=== PATIENT | female | born 1940 | race Caucasian/White ===

== ENCOUNTER 2017-03-07 19:37 | Emergency (ER) | payer MEDICARE ==
[~2017-03-07 19:37] MED LIST: CALCCHW25 CHEW; COQ130CA PO; DIPH2.5T14 PO; FLAXPOW PO; GENTGEL EACH EYE; MAGN250T11 PO; MULTTAB67 PO; VITA100018 PO; VITA400C70; ZOLP5TAB3 PO
[2017-03-07 19:57] VITALS: BP 141/87; PULSE 102; RESP 16; TEMP 100.5; O2SAT 100
== END 2017-03-07 21:15 | disposition left against medical advice (07) ==
LOC: NED 19:37
DX: R10.9 Unspecified abdominal pain (principal); R11.0 Nausea; R50.9 Fever, unspecified; Z53.21 Procedure and treatment not carried out due to patient leaving prior to being seen by health care provider
CPT/HCPCS: 99281

== ENCOUNTER 2017-03-09 12:38 | Inpatient (IN) | payer MEDICARE ==
[~2017-03-09] VITALS: Ht 157.5 cm; Wt 63.4 kg
[~2017-03-09 12:38] MED LIST changes: +LACTATED RINGER'S 1000 ML INJ 2,000 ML IV ONE; +ONDANSETRON HCL 4 MG/2 ML VIAL IV PUSH ONE; +PHENYLEPH/NS 1000 MCG/10 ML SYR IV ONE; +PROPOFOL 200 MG/20 ML AMP IV ONE; +ePHEDrine/NS 25 MG/5 ML SYR IV ONE
[2017-03-09 12:42] VITALS: BP 143/67; PULSE 109; RESP 20; TEMP 98.7; O2SAT 97
--- NOTE | 2017-03-09 12:59 | PD ---
HPI Chief Complaint: Head Wound Follow-up. Time Seen by Provider: 12:55 Travel History International Travel<30 days: No Contact w/Intl Traveler<30days: No History of Present Illness HPI Patient here S/P Small Head Lac to Left Posterior Scalp 3 days ago. Here to see when [place] should come out. no Acute Complaints. PFSH Past Medical History Asthma: No Blood Disorders: No Anxiety: No Depression: No Heart Rhythm Problems: No Cancer: No Cardiovascular Problems: No (MOTHER HAD MD ) High Cholesterol: No Chemotherapy: No Chest Pain: Yes (TURNED OUT TO BE GALLBLADDER) Congestive Heart Failure: No COPD: No Diabetes: No Diminished Hearing: No Endocrine: No Gastrointestinal Disorders: Yes (FISTULA) GERD: Yes Genitourinary: No Hypertension: Yes Immune Disorder: No Musculoskeletal: No Neurologic: No Psychiatric: No Reproductive: No Respiratory: No Immunizations Current: Yes Radiation Therapy: No Sleep Apnea: No Thyroid Disease: No PNEUMOCCOCAL Vaccine (Year): 2008 Menopausal: Yes Past Surgical History Abdominal Surgery: Yes (COLON RESECTION 03/27/10) Cholecystectomy: Yes Gynecologic Surgery: Yes (hysterectomy) Hysterectomy: Yes (at age 55) Social History Alcohol Use: Yes (WINE X1 DAILY) Tobacco Use: No Substance Use: No Allergies-Medications (Allergen,Severity, Reaction): Coded Allergies: No Known Allergies (Verified , 03/09/17) Reported Meds & Prescriptions Reported Meds & Active Scripts Active Zolpidem (Zolpidem Tartrate) 5 Mg Tab 5 Mg PO HS PRN Diphenoxylate-Atropine 2.5-0.025 Mg Tab 1 Tab PO Q6H PRN Reported Genteal Gel Drops (Carboxymethylcell/Hypromellose) 25 Ml Drp.lq.gel Applic EACH EYE PRN Flax Seeds (Flaxseed (Linseed)) 1 Pow Pow 1 PO PRN Vitamin D3 (Cholecalciferol) 1,000 Unit Tab 1,000 Units PO DAILY Coq10 (Coenzyme Q10 (Ubidecarenone)) 30 Mg Cap 1 Cap PO DAILY Multiple Vitamin 1 Tab 1 Tab PO DAILY Magnesium Oxide 250 Mg Tab 250 Mg PO DAILY Vitamin E-400 (Vitamin E) 400 Unit Cap Calcium + D & K (Calcium-Vitamins D & K) 500-1,000-40 Mg-Unit-Mcg Chew 1 Tab CHEW Review of Systems Except as stated in HPI: all other systems reviewed are Neg General / Constitutional: No: Fever Eyes: No: Visual changes HENT: No: Headaches Cardiovascular: No: Chest Pain or Discomfort Respiratory: No: Shortness of Breath Gastrointestinal: No: Abdominal Pain Genitourinary: No: Dysuria Musculoskeletal: No: Pain Skin: No Rash Neurologic: No: Weakness Psychiatric: No: Depression Endocrine: No: Polydipsia Hematologic/Lymphatic: No: Easy Bruising Physical Exam Narrative GENERAL: NAD SKIN: Warm and dry. Well healing Scalp Laceration with [address] HEAD: Atraumatic. Normocephalic. EYES: Pupils equal and round. No scleral icterus. No injection or drainage. ENT: No nasal bleeding or discharge. Mucous membranes pink and moist. NECK: Trachea midline.supple CARDIOVASCULAR: Regular rate and rhythm. RESPIRATORY: No accessory muscle use. MUSCULOSKELETAL: Extremities without clubbing, cyanosis, or edema. No obvious deformities. NEUROLOGICAL: Awake and alert. No obvious cranial nerve deficits. Motor grossly within normal limits. Five out of 5 muscle strength in the arms and legs. Normal speech. PSYCHIATRIC: Appropriate mood and affect; insight and judgment normal. Data Data Last Documented VS Vital Signs Date Time Temp Pulse Resp B/P (MAP) Pulse Ox O2 Delivery O2 Flow Rate FiO2 03/09/17 12:42 98.7 109 20 143/67 (92) 97 Room Air MDM Medical Decision Making Medical Screen Exam Complete: Yes Emergency Medical Condition: No Differential Diagnosis Head Injury. Scalp Laceration. Wound Check. Narrative Course Medical Screening Exam has been performed. No Emergent Medical Problems have been identified. F/U as needed. Condition: Stable Xavier Huber Mar 09, 2017 12:59
--- NOTE | 2017-03-09 13:31 | PD ---
Physical Exam Date Seen by Provider: Mar 09, 2017 Time Seen by Provider: 13:29 Narrative 76 y/o female here with 3 days of 7/10 lower abdominal pain. Patient has Nausea , but no vomiting or Diarrhea. Patient sent in by PCP. Vital Signs reviewed. Patient is Stable and awaiting Bed Placement. Data Data Last Documented VS Vital Signs Date Time Temp Pulse Resp B/P (MAP) Pulse Ox O2 Delivery O2 Flow Rate FiO2 03/09/17 12:42 98.7 109 20 143/67 (92) 97 Room Air Orders Orders Complete Blood Count With Diff (03/09/17 13:01) Comprehensive Metabolic Panel (03/09/17 13:01) Lipase (03/09/17 13:01) Lactic Acid (03/09/17 13:01) Prothrombin Time / Inr (Pt) (03/09/17 13:01) Act Partial Throm Time (Ptt) (03/09/17 13:01) Urinalysis - C+S If Indicated (03/09/17 13:01) Electrocardiogram (03/09/17 13:01) Chest, Single Ap (03/09/17 13:01) Ckmb (Isoenzyme) Profile (03/09/17 13:01) Magnesium (Mg) (03/09/17 13:01) Troponin I (03/09/17 13:01) MDM Medical Record Reviewed: Yes Supervised Visit with NICOLE: Yes Condition: Stable Xavier Huber Mar 09, 2017 13:31
[2017-03-09 13:45] LABS: AUTOMATED NEUTROPHIL # 18.7 TH/MM3 (1.8-7.7); BASOPHIL % 0.1 % (0.0-2.0); HEMATOCRIT 42.9 % (35.0-46.0); HEMO FLAGS DIFF FINAL; LYMPHOCYTE # 1.2 TH/MM3 (1.0-4.8); MEAN CELL VOLUME 93.7 FL (80.0-100.0); MEAN CORPUSCULAR HEMOGLOBIN 31.7 PG (27.0-34.0); MEAN CORPUSCULAR HGB CONC 33.8 % (32.0-36.0); MONO % 3.1 % (0.0-8.0); NEUT % 90.8 % (16.0-70.0); PLATELET COUNT 233 TH/MM3 (150-450); RED BLOOD COUNT 4.58 MIL/MM3 (4.00-5.30); RED CELL DISTRIBUTION WIDTH 14.1 % (11.6-17.2); WHITE BLOOD COUNT 20.5 TH/MM3 (4.0-11.0)
[2017-03-09 14:00] LABS: ALT (GPT) 40 U/L (10-53); ANION GAP 11 MEQ/L (5-15); AST (GOT) 37 U/L (15-37); BICARBONATE 26.5 MEQ/L (21.0-32.0); BLOOD UREA NITROGEN 14 MG/DL (7-18); CHLORIDE 98 MEQ/L (98-107); GLOMERULAR FILTRATION RATE 58 ML/MIN (>89); MAGNESIUM 2.6 MG/DL (1.5-2.5); POTASSIUM 4.2 MEQ/L (3.5-5.1); SODIUM (NA) 135 MEQ/L (136-145)
[2017-03-09 14:03] LABS: ALKALINE PHOSPHATASE 126 U/L (45-117); APTT (PATIENT) 31.4 SEC (24.3-30.1); INTERNATIONAL NORMALIZED RATIO 0.9 RATIO; PROTHROMBIN TIME - PATIENT 10.3 SEC (9.8-11.6); TOTAL BILIRUBIN ADULT 1.1 MG/DL (0.2-1.0)
[2017-03-09 14:06] LABS: CREATINE KINASE 79 U/L (26-192)
--- NOTE | 2017-03-09 14:32 | RADRPT ---
EXAM DATE/TIME: 03/09/2017 14:16 [facility] COMPARISON: No previous studies available for comparison. INDICATIONS : Cough. MEDICAL HISTORY : None. SURGICAL HISTORY : None. ENCOUNTER: Initial ACUITY: 1 day PAIN SCORE: 0/10 LOCATION: Bilateral chest FINDINGS: PA and lateral views of the chest demonstrates hyperinflation which can be seen with CO PD. No infiltrates are seen. Heart is normal in size. The mediastinal contours are unremarkable. O sseous structures are intact. CONCLUSION: Hyperinflation which can be seen with COPD. No acute cardiopulmonary disease an d no evidence for an infiltrate. Oscar Basurto MD on March 09, 2017 at 14:30 Board Certified Radiologist. This report was verified electronically.
[2017-03-09 14:58] LABS: BLOOD, URINE MOD (NEG); COMMENT (UR) CULT NOT INDICATED; CULTURE IF INDICATED CULT NOT INDICATED; GLUCOSE,URINE NEG (NEG); KETONE, URINE 40 mg/dL (NEG); MUCUS URINE FEW /lpf (OCC); NITRITE,URINE NEG (NEG); SQUAMOUS EPITHELIAL CELL URINE 2 /hpf (0-5); URINE COLOR YELLOW (YELLW/STRAW)
[2017-03-09] MEDS ORDERED: SODIUM CHLOR 0.9% 1000 ML INJ 1,000 ML IV SCH (16:47)
--- NOTE | 2017-03-09 16:57 | PD ---
HPI Chief Complaint: Abdominal Pain Time Seen by Provider: 16:47 Travel History International Travel<30 days: No Contact w/Intl Traveler<30days: No Traveled to known affect area: No History of Present Illness HPI Patient comes emergency Department complaining of lower abdominal pain ongoing for 3 days. Patient describes pain as a sharp stabbing. Pain radiates from the left to the right lower quadrant. Patient's pain is constant. Patient reports a fever yesterday and took Tylenol for it, but has not had a fever since. Patient denies doing anything else for this. Patient reports associated nausea and nonbloody diarrhea. Patient denies any actual vomiting. Patient denies any chest pain, shortness of breath, back pain, loss change of bladder, headaches, numbness or tingling anywhere. Patient reports she's had 18 inches of her colon removed, hysterectomy, and cholecystectomy, but denies any other abdominal surgeries. Pain is worse with certain movement and palpation. Denies anything making it better. Denies any recent antibiotic use. PFSH Past Medical History Asthma: No Blood Disorders: No Anxiety: No Depression: No Heart Rhythm Problems: No Cancer: No Cardiovascular Problems: No (MOTHER HAD MA ) High Cholesterol: No Chemotherapy: No Chest Pain: Yes (TURNED OUT TO BE GALLBLADDER) Congestive Heart Failure: No COPD: No Diabetes: No Diminished Hearing: No Endocrine: No Gastrointestinal Disorders: Yes (FISTULA) GERD: Yes Genitourinary: No Hypertension: Yes Immune Disorder: No Musculoskeletal: No Neurologic: No Psychiatric: No Reproductive: No Respiratory: No Immunizations Current: Yes Radiation Therapy: No Sleep Apnea: No Thyroid Disease: No PNEUMOCCOCAL Vaccine (Year): 2008 Menopausal: Yes Past Surgical History Abdominal Surgery: Yes (COLON RESECTION 03/27/10) Cholecystectomy: Yes Gynecologic Surgery: Yes (hysterectomy) Hysterectomy: Yes Social History Alcohol Use: Yes (WINE X1 DAILY) Tobacco Use: No Substance Use: No Allergies-Medications (Allergen,Severity, Reaction): Coded Allergies: No Known Allergies (Verified , 03/09/17) Reported Meds & Prescriptions Reported Meds & Active Scripts Active Zolpidem (Zolpidem Tartrate) 5 Mg Tab 5 Mg PO HS PRN Reported Genteal Gel Drops (Carboxymethylcell/Hypromellose) 25 Ml Drp.lq.gel Applic EACH EYE PRN Vitamin D3 (Cholecalciferol) 1,000 Unit Tab 1,000 Units PO DAILY Coq10 (Coenzyme Q10 (Ubidecarenone)) 30 Mg Cap 1 Cap PO DAILY Multiple Vitamin 1 Tab 1 Tab PO DAILY Magnesium Oxide 250 Mg Tab 250 Mg PO DAILY Vitamin E-400 (Vitamin E) 400 Unit Cap Calcium + D & K (Calcium-Vitamins D & K) 500-1,000-40 Mg-Unit-Mcg Chew 1 Tab CHEW Review of Systems Except as stated in HPI: all other systems reviewed are Neg Physical Exam Narrative GENERAL: Well-developed, well nourished, in no acute distress, and non-ill appearing. SKIN: Focused skin assessment warm and dry. HEAD: Atraumatic. Normocephalic. EYES: Pupils equal and round. EOMI. No scleral icterus. No injection or drainage. ENT: No nasal bleeding or discharge. Mucous membranes pink and moist. NECK: Trachea midline. Supple. No nuclear rigidity. CARDIOVASCULAR: Regular rate and rhythm. No murmur appreciated. RESPIRATORY: No accessory muscle use. No respiratory distress. Clear to auscultation. Breath sounds equal bilaterally. GASTROINTESTINAL: Abdomen soft, nondistended. Hepatic and splenic margins not palpable. Normal bowel sounds 4. No pulsatile mass. Patient reports tenderness throughout her lower abdomen with voluntary guarding. MUSCULOSKELETAL: No obvious deformities. No clubbing. No cyanosis. No edema. Full range of motion. NEUROLOGICAL: Awake and alert. No obvious cranial nerve deficits. Motor grossly within normal limits. Normal speech. PSYCHIATRIC: Appropriate mood and affect; insight and judgment normal. Data Data Last Documented VS Vital Signs Date Time Temp Pulse Resp B/P (MAP) Pulse Ox O2 Delivery O2 Flow Rate FiO2 03/09/17 18:00 95 26 154/67 (96) 97 Room Air 03/09/17 12:42 98.7 Orders Orders Complete Blood Count With Diff (03/09/17 13:01) Comprehensive Metabolic Panel (03/09/17 13:01) Lipase (03/09/17 13:01) Lactic Acid (03/09/17 13:01) Prothrombin Time / Inr (Pt) (03/09/17 13:01) Act Partial Throm Time (Ptt) (03/09/17 13:01) Urinalysis - C+S If Indicated (03/09/17 13:01) Electrocardiogram (03/09/17 13:01) Ckmb (Isoenzyme) Profile (03/09/17 13:01) Magnesium (Mg) (03/09/17 13:01) Troponin I (03/09/17 13:01) Chest, Pa & Lat (03/09/17 13:01) Ct Abd/Pel W Iv Contrast(Rout) (03/09/17 16:47) Iv Access Insert/Monitor (03/09/17 16:47) Ecg Monitoring (03/09/17 16:47) Oximetry (03/09/17 16:47) Morphine Inj (Morphine Inj) (03/09/17 17:00) Ondansetron Inj (Zofran Inj) (03/09/17 17:00) Sodium Chlor 0.9% 1000 Ml Inj (Ns 1000 M (03/09/17 16:47) Sodium Chloride 0.9% Flush (Ns Flush) (03/09/17 17:00) Piperacil-Tazo 3.375 Gm Premix (Zosyn 3. (03/09/17 17:00) Amylase (03/09/17 16:47) Blood Culture (03/09/17 16:47) Iohexol 350 Inj (Omnipaque 350 Inj) (03/09/17 17:37) Consult General Surgery (03/09/17 ) (Hub Use Only)Inp Phy Cons/Ref (03/09/17 ) NPO (03/09/17 18:38) Admit Order (Ed Use Only) (03/09/17 19:30) Admit To Inpatient (03/09/17 ) Vital Signs (Adult) JUVENCIO.Q4H (03/09/17 19:32) Activity Bed Rest (03/09/17 19:32) Intake + Output 06,14,22 (03/09/17 19:32) Diet Npo (03/10/17 Breakfast) Sodium Chloride 0.9% Flush (Ns Flush) (03/09/17 19:45) Sodium Chloride 0.9% Flush (Ns Flush) (03/09/17 21:00) Inpatient Certification (03/09/17 ) Labs Laboratory Tests Test 03/09/17 13:30 03/09/17 14:00 03/09/17 17:23 White Blood Count 20.5 TH/MM3 Red Blood Count 4.58 MIL/MM3 Hemoglobin 14.5 GM/DL Hematocrit 42.9 % Mean Corpuscular Volume 93.7 FL Mean Corpuscular Hemoglobin 31.7 PG Mean Corpuscular Hemoglobin Concent 33.8 % Red Cell Distribution Width 14.1 % Platelet Count 233 TH/MM3 Mean Platelet Volume 8.0 FL Neutrophils (%) (Auto) 90.8 % Lymphocytes (%) (Auto) 6.0 % Monocytes (%) (Auto) 3.1 % Eosinophils (%) (Auto) 0.0 % Basophils (%) (Auto) 0.1 % Neutrophils # (Auto) 18.7 TH/MM3 Lymphocytes # (Auto) 1.2 TH/MM3 Monocytes # (Auto) 0.6 TH/MM3 Eosinophils # (Auto) 0.0 TH/MM3 Basophils # (Auto) 0.0 TH/MM3 CBC Comment DIFF FINAL Differential Comment Prothrombin Time 10.3 SEC Prothromb Time International Ratio 0.9 RATIO Activated Partial Thromboplast Time 31.4 SEC Blood Urea Nitrogen 14 MG/DL Creatinine 0.94 MG/DL Random Glucose 86 MG/DL Total Protein 8.9 GM/DL Albumin 3.7 GM/DL Calcium Level 9.9 MG/DL Magnesium Level 2.6 MG/DL Alkaline Phosphatase 126 U/L Aspartate Amino Transf (AST/SGOT) 37 U/L Alanine Aminotransferase (ALT/SGPT) 40 U/L Total Bilirubin 1.1 MG/DL Sodium Level 135 MEQ/L Potassium Level 4.2 MEQ/L Chloride Level 98 MEQ/L Carbon Dioxide Level 26.5 MEQ/L Anion Gap 11 MEQ/L Estimat Glomerular Filtration Rate 58 ML/MIN Lactic Acid Level 2.1 mmol/L Total Creatine Kinase 79 U/L Troponin I 0.06 NG/ML Lipase 110 U/L Urine Color YELLOW Urine Turbidity HAZY Urine pH 6.0 Urine Specific [place] 1.028 Urine Protein 100 mg/dL Urine Glucose (UA) NEG mg/dL Urine Ketones 40 mg/dL Urine Occult Blood MOD Urine Nitrite NEG Urine Bilirubin NEG Urine Urobilinogen 2.0 MG/DL Urine Leukocyte Esterase NEG Urine RBC 10 /hpf Urine WBC 8 /hpf Urine Squamous Epithelial Cells 2 /hpf Urine Amorphous Sediment RARE Urine Mucus FEW /lpf Microscopic Urinalysis Comment CULT NOT INDICATED Amylase Level 30 U/L MDM Medical Decision Making Medical Screen Exam Complete: Yes Emergency Medical Condition: Yes Interpretation(s) EKG reviewed by Dr. Eugene shows sinus tach with ventricular rate of 107. No STEMI. Chest x-ray read by the radiologist shows: Hyperinflation which can be seen with COPD. No acute cardiopulmonary disease and no evidence for an infiltrate. CT abdomen and pelvis read by the radiologist shows: 1. Inflammatory changes right lower quadrant with what appears to be a dilated appendix containing an appendicolith. Diverticulitis is suspected. 2. There is some wall thickening involving small bowel loops in the adjacent vicinity. 3. Diverticulosis of the sigmoid colon. 4. Status post cholecystectomy. Differential Diagnosis UTI, diverticulitis, colitis, ischemic bowel, appendicitis, electrolyte abnormality, bowel obstruction, other Narrative Course Patient was seen and examined. IV is established. Patient was on cardiac monitor technician. Initial laboratory studies were reviewed. Additional laboratory along with CT scan was ordered. Patient given IV fluids, IV antibiotics, IV morphine, and IV Zofran. Patient was reassessed with noted improvement of her symptoms, but not resolved completely. Discussed all findings including CT findings with patient who is agreeable for admission. Discussed patient with Dr. Eugene who is in agreement with plan of care and disposition. Discussed patient surgeon manager instrumentation, who will see andl consult on the patient. Discussed patient with the residents, who are agreeable to admit the patient. Sepsis Criteria SIRS Criteria (2 or more): Heart rate over 90, WBC > 94870, < 4000 or > 10% bands Sepsis Criteria (SIRS+source): Infect source susp/known Severe Sepsis (+one): Lactate >2 Criteria Outcome: Meets severe sepsis criteria Physician Communication Physician Communication [id number] Gutiérrez, surgeon on-call, who recommends continuing Zosyn, admitted to medicine, who will see the patient in consult, and keep patient nothing by mouth until he evaluates her. 1929 discussed patient with the residents manager instrumentation for Dr. Oseguera, who are agreeable to admit the patient. Diagnosis Primary Impression: Sepsis Qualified Codes: A41.9 - Sepsis, unspecified organism Additional Impressions: Appendicitis, acute Qualified Codes: K35.80 - Unspecified acute appendicitis Diverticulitis Qualified Codes: K57.92 - Diverticulitis of intestine, part unspecified, without perforation or abscess without bleeding Admitting Information Admitting Physician Requests: Admit Condition: Stable Lee Watson Mar 09, 2017 16:57
[2017-03-09] MEDS ORDERED: MORPHINE SULFATE 4 MG/ML INJ IV PUSH ONE (17:00)
[2017-03-09] MEDS ORDERED: PIPERACIL-TAZO 3.375 GM PREMIX 50 ML IV ONE (17:00)
[2017-03-09] MEDS ORDERED: ONDANSETRON HCL 4 MG/2 ML VIAL IVP ONE (17:00)
[2017-03-09] MEDS ORDERED: SODIUM CHLORIDE 0.9% FLUSH 10 ML FLUSH IV FLUSH PRN ×2 (17:00→19:45)
[2017-03-09] MEDS ORDERED: IOHEXOL 350 MG/ML 10 ML VIAL (for RAD DIAG) IV PUSH ONE (17:37)
--- NOTE | 2017-03-09 17:51 | RADRPT ---
EXAM DATE/TIME: 03/09/2017 17:31 [facility] COMPARISON: No previous studies available for comparison. INDICATIONS : Abdomen pain. IV CONTRAST: 96 cc Omnipaque 350 (iohexol) IV ORAL CONTRAST: No oral contrast ingested. RADIATION DOSE: 5.00 CTDIvol (mGy) MEDICAL HISTORY : Hypertension. fistula SURGICAL HISTORY : Colon resection. Hysterectomy.Cholecystectomy. ENCOUNTER: Initial ACUITY: 1 day PAIN SCALE: 10/10 LOCATION: Bilateral abdomen. TECHNIQUE: Volumetric scanning of the abdomen and pelvis was performed. Using automated exposure control and ad justment of the mA and/or kV according to patient size, radiation dose was kept as low as reasonably achievable to obtain optimal diagnostic quality images. DICOM format image data is available electro nically for review and comparison. FINDINGS: LOWER LUNGS: The visualized lower lungs are clear. LIVER: Homogeneous density without lesion. There is no dilation of the biliary tree. Cholecystectomy clips. SPLEEN: Normal size without lesion. PANCREAS: Within normal limits. KIDNEYS: Normal in size and shape. There is no mass, stone or hydronephrosis. ADRENAL GLANDS: Within normal limits. VASCULAR: There is no aortic aneurysm. BOWEL/MESENTERY: Inflammatory changes in the right lower abdomen. Tubular structure believed to be the appendix is dil ated and contains an appendicolith, likely appendicitis. There is wall thickening of some adjacent sm all bowel loops. Diverticulosis of the sigmoid colon. Anastomotic sutures in the rectum. There is no free intraperitoneal air or fluid. ABDOMINAL WALL: Within normal limits. RETROPERITONEUM: There is no lymphadenopathy. BLADDER: No wall thickening or mass. REPRODUCTIVE: Within normal limits. INGUINAL: There is no lymphadenopathy or hernia. MUSCULOSKELETAL: Within normal limits for patient age. CONCLUSION: 1. Inflammatory changes right lower quadrant with what appears to be a dilated appendix containing an appendicolith. Diverticulitis is suspected. 2. There is some wall thickening involving small bowel loops in the adjacent vicinity. 3. Diverticulosis of the sigmoid colon. 4. Status post cholecystectomy. Oscar Basurto MD on March 09, 2017 at 17:46 Board Certified Radiologist. This report was verified electronically.
[2017-03-09 18:00] VITALS: BP 154/67; PULSE 95; RESP 26; O2SAT 97
--- NOTE | 2017-03-09 19:31 | HHI.HP ---
[facility] Service Family Medicine Primary Care Physician Emmanuel Carrillo , R3 MD Iza Admission Diagnosis Diagnoses: International Travel<30 Days: No Contact w/Intl Traveler<30days: No Known Affected Area: No History of Present Illness 34-year-old female with past medical history of chronic insomnia presenting with a four-day history of lower abdominal pain. Started on Thursday, at which time she thought it was just some gas. Took some Gas-X Thursday night and Thursday morning which did not improve her symptoms. Pain is described as lower abdominal cramping. It does not radiate. On Thursday evening, she had a temperature of 101. She took some Tylenol Thursday during the day which made her sleep but otherwise did not improve her symptoms. She's felt slightly nauseous but has not vomited. She had some diarrhea this morning described as loose brown watery stool. Denies recent antibiotic use or foul-smelling stool. Denies blood in stool, constipation, dysuria, chest pain, shortness of breath. 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 Cholecystectomy 2010 Reported Medications Reported Meds & Active Scripts Active Zolpidem (Zolpidem Tartrate) 5 Mg Tab 5 Mg PO HS PRN Reported Genteal Gel Drops (Carboxymethylcell/Hypromellose) 25 Ml Drp.lq.gel Applic EACH EYE PRN Vitamin D3 (Cholecalciferol) 1,000 Unit Tab 1,000 Units PO DAILY Coq10 (Coenzyme Q10 (Ubidecarenone)) 30 Mg Cap 1 Cap PO DAILY Multiple Vitamin 1 Tab 1 Tab PO DAILY Magnesium Oxide 250 Mg Tab 250 Mg PO DAILY Vitamin E-400 (Vitamin E) 400 Unit Cap Calcium + D & K (Calcium-Vitamins D & K) 500-1,000-40 Mg-Unit-Mcg Chew 1 Tab CHEW Allergies: Coded Allergies: No Known Allergies (Verified , 03/09/17) Active Ordered Medications Current Medications Medications (Trade) Dose Ordered Sig/Soledad Route Start Time Stop Time Status Last Admin (NS Flush) 2 ml UNSCH PRN IV FLUSH 03/09/17 19:45 (NS Flush) 2 ml BID IV FLUSH 03/09/17 21:00 Piperacillin Sod/ Tazobactam Sod 50 ml @ 100 mls/hr Q6H IV 03/09/17 23:00 Sodium Chloride 1,000 ml @ 100 mls/hr Q10H IV 03/09/17 20:00 (Zofran Inj) 4 mg Q8HR PRN IV PUSH 03/09/17 20:00 (Tylenol) 500 mg Q6H PRN PO 03/09/17 20:00 (Morphine Inj) 1 mg Q3H PRN IV PUSH 03/09/17 20:00 (Morphine Inj) 2 mg Q3H PRN IV PUSH 03/09/17 20:00 (Narcan Inj) 0.4 mg UNSCH PRN IV PUSH 03/09/17 20:00 Family History Father - at 95; old age Mother - at 92; HTN, heart problems 2, 1/2 Brothers - Glaucoma 1, 1/2 Sister - Hypothyroidism Children - Denies Social History Lives in [place] with . She does have a living will. EtOH - 1 glass red wine at dinner Tobacco - quit, 1/4 PPD for 10 years Illicit Drugs - denies Physical Exam Vital Signs Vital Signs Date Time Temp Pulse Resp B/P (MAP) Pulse Ox O2 Delivery O2 Flow Rate FiO2 03/09/17 18:00 95 26 154/67 (96) 97 Room Air 03/09/17 12:42 98.7 109 20 143/67 (92) 97 Room Air Physical Exam GENERAL: Well-developed, well-nourished thin elderly white woman with short hair sitting in bed in no acute distress. Pleasant, appears slightly uncomfortable. SKIN: No rashes, ecchymoses or lesions. Cool and dry. Slight tenting. HEAD: NC/AT EYES: PERRL. EOMI. No conjunctival injection or drainage. ENT: MMM, OP without erythema, tonsillar swelling, or exudate. NECK: Supple, no lymphadenopathy. No JVD. CARDIOVASCULAR: NRRR. Normal S1/S2. No MRG RESPIRATORY: CTAB. No crackles or wheezes. GASTROINTESTINAL: Normoactive bowel sounds. Abdomen soft, non-distended, moderately tender to palpation in the suprapubic region and to a lesser degree in the right upper quadrant. No rebound tenderness. Slight voluntary guarding. Negative psoas and obturator signs. No hepato-splenomegaly or palpable masses. MUSCULOSKELETAL: Extremities without clubbing, cyanosis, or edema. NEUROLOGICAL: Awake and alert. Cranial nerves II through XII grossly intact. Moves all extremities without difficulty. Normal speech. Laboratory Laboratory Tests Test 03/09/17 13:30 03/09/17 14:00 03/09/17 17:23 White Blood Count 20.5 Red Blood Count 4.58 Hemoglobin 14.5 Hematocrit 42.9 Mean Corpuscular Volume 93.7 Mean Corpuscular Hemoglobin 31.7 Mean Corpuscular Hemoglobin Concent 33.8 Red Cell Distribution Width 14.1 Platelet Count 233 Mean Platelet Volume 8.0 Neutrophils (%) (Auto) 90.8 Lymphocytes (%) (Auto) 6.0 Monocytes (%) (Auto) 3.1 Eosinophils (%) (Auto) 0.0 Basophils (%) (Auto) 0.1 Neutrophils # (Auto) 18.7 Lymphocytes # (Auto) 1.2 Monocytes # (Auto) 0.6 Eosinophils # (Auto) 0.0 Basophils # (Auto) 0.0 CBC Comment DIFF FINAL Differential Comment Prothrombin Time 10.3 Prothromb Time International Ratio 0.9 Activated Partial Thromboplast Time 31.4 Blood Urea Nitrogen 14 Creatinine 0.94 Random Glucose 86 Total Protein 8.9 Albumin 3.7 Calcium Level 9.9 Magnesium Level 2.6 Alkaline Phosphatase 126 Aspartate Amino Transf (AST/SGOT) 37 Alanine Aminotransferase (ALT/SGPT) 40 Total Bilirubin 1.1 Sodium Level 135 Potassium Level 4.2 Chloride Level 98 Carbon Dioxide Level 26.5 Anion Gap 11 Estimat Glomerular Filtration Rate 58 Lactic Acid Level 2.1 Total Creatine Kinase 79 Troponin I 0.06 Lipase 110 Urine Color YELLOW Urine Turbidity HAZY Urine pH 6.0 Urine Specific [place] 1.028 Urine Protein 100 Urine Glucose (UA) NEG Urine Ketones 40 Urine Occult Blood MOD Urine Nitrite NEG Urine Bilirubin NEG Urine Urobilinogen 2.0 Urine Leukocyte Esterase NEG Urine RBC 10 Urine WBC 8 Urine Squamous Epithelial Cells 2 Urine Amorphous Sediment RARE Urine Mucus FEW Microscopic Urinalysis Comment CULT NOT INDICATED Amylase Level 30 Date/Time Source Procedure Growth Status 03/09/17 17:23 Blood Peripheral Aerobic Blood Culture Pending Received 03/09/17 17:23 Blood Peripheral Anaerobic Blood Culture Pending Received Result Diagram: 03/09/17 1330 03/09/[address] scan: Dilated tubular structure in the right lower quadrant believed to be appendix containing appendicolith. Inflammatory changes surrounding the structure. Diverticulosis of the sigmoid colon. Chest x-ray: No acute cardiopulmonary disease. EKG: Normal sinus rhythm, normal rate, no ST-T wave changes. QTC 383 ms. Septic Shock Reassessment Heart: Regular rate and rhythm Lungs: Clear Skin: Cold, Dry Peripheral Pulses: Bounding Right Radial Bounding Left Radial Caprini VTE Risk Assessment Caprini VTE Risk Assessment: Mod/High Risk (score >= 2) Caprini Risk Assessment Model Point Value = 1 Point Value = 2 Point Value = 3 Point Value = 5 Age 41-60 Minor surgery BMI > 25 kg/m2 Swollen legs Varicose veins or History of unexplained or recurrent spontaneous Oral contraceptives or hormone replacement Sepsis (< 1 month) Serious lung disease, including pneumonia (< 1 month) Abnormal pulmonary function Acute myocardial infarction Congestive heart failure (< 1 month) History of inflammatory bowel disease Medical patient at bed rest Age 61-74 Arthroscopic surgery Major open surgery (> 45 min) Laparoscopic surgery (> 45 min) Malignancy Confined to bed (> 72 hours) Immobilizing plaster cast Central venous access Age >= 75 History of VTE Family history of VTE Factor V Leiden Prothrombin [id number] Lupus anticoagulant Anticardiolipin antibodies Elevated serum homocysteine Heparin-induced thrombocytopenia Other congenital or acquired thrombophilia Stroke (< 1 month) Elective arthroplasty Hip, pelvis, or leg fracture Acute spinal cord injury (< 1 month) Prophylaxis Regimen Total Risk Factor Score Risk Level Prophylaxis Regimen 0-1 Low Early ambulation 2 Moderate Order ONE of the following: *Sequential Compression Device (SCD) *Heparin 5000 units SQ BID 3-4 Higher Order ONE of the following medications: *Heparin 5000 units SQ TID *Enoxaparin/Lovenox 40 mg SQ daily (WT < 150 kg, CrCl > 30 mL/min) *Enoxaparin/Lovenox 30 mg SQ daily (WT < 150 kg, CrCl > 10-29 mL/min) *Enoxaparin/Lovenox 30 mg SQ BID (WT < 150 kg, CrCl > 30 mL/min) AND/OR *Sequential Compression Device (SCD) 5 or more Highest Order ONE of the following medications: *Heparin 5000 units SQ TID (Preferred with Epidurals) *Enoxaparin/Lovenox 40 mg SQ daily (WT < 150 kg, CrCl > 30 mL/min) *Enoxaparin/Lovenox 30 mg SQ daily (WT < 150 kg, CrCl > 10-29 mL/min) *Enoxaparin/Lovenox 30 mg SQ BID (WT < 150 kg, CrCl > 30 mL/min) AND *Sequential Compression Device (SCD) Assessment and Plan Assessment and Plan 76 yo female with h/o insomnia presenting with: Problem List: (1) Sepsis ICD Codes: A41.9 - Sepsis, unspecified organism Status: Acute Plan: Sepsis due to appendicitis WBC ~20 Lactic acid slightly elevated (2.1) - Admit to inpatient - Consulted surgery (Dr. Gutiérrez), appreciate assistance - NPO for anticipated appendectomy tonight - Pain control: Tylenol for moderate pain, morphine 1 mg IV Q3H for pain 6-8, morphine 2 mg IV Q3H for pain 9-10 - Zofran 4 mg IV Q8H PRN N/V - Zosyn 3.375 gm IV Q6H (dosed renally for CrCL ~40) (2) Appendicitis, acute ICD Codes: K35.80 - Unspecified acute appendicitis Status: Acute Plan: See above plan (3) Insomnia ICD Codes: G47.00 - Insomnia Status: Chronic Plan: Continue home Ambien PRN (4) HTN (hypertension) ICD Codes: I10 - Essential (primary) hypertension Status: Chronic Plan: BP slightly elevated on presentation, likely due to pain. Not prescribed anti-hypertensive medication due to normal BP readings at home, but carries diagnosis. - Monitor clinically Permanent Comment: 12/2013: Urine microalb/cr: 9.9 Last Edited By: Tarik Wilkinson on Dec 31, 2013 13:06 (5) FEN/PPX Plan: Fluids: As above Elecs: Monitor and replete as needed Nutrition: NPO until after surgery DVT: Lovenox 40 mg SQ daily Physician Certification 2 Midnight Certification Type: Admission for Inpatient Services Order for Inpatient Services The services are ordered in accordance with Medicare regulations or non- Medicare payer requirements, as applicable. In the case of services not specified as inpatient-only, they are appropriately provided as inpatient services in accordance with the 2-midnight benchmark. Estimated LOS (days): 2 days is the estimated time the patient will need to remain in the hospital, assuming treatment plan goals are met and no additional complications. Post-Hospital Plan: Home Problem Qualifiers (1) Sepsis: Qualified Codes: A41.9 - Sepsis, unspecified organism (2) Appendicitis, acute: Qualified Codes: K35.80 - Unspecified acute appendicitis (3) HTN (hypertension): Qualified Codes: I10 - Essential (primary) hypertension Barak Carrasco MD R2 Mar 09, 2017 19:31
[2017-03-09] MEDS ORDERED: NALOXONE HCL 0.4 MG/ML AMP IV PUSH PRN (20:00)
[2017-03-09] MEDS ORDERED: ACETAMINOPHEN 500 MG CPLT PO PRN (20:00)
[2017-03-09] MEDS ORDERED: MORPHINE SULFATE 4 MG/ML INJ IV PUSH PRN ×2 (20:00)
[2017-03-09] MEDS ORDERED: ONDANSETRON HCL 4 MG/2 ML VIAL IV PUSH PRN (20:00)
[2017-03-09] MEDS ORDERED: BUPIVACAINE/EPINEPHRINE 0.25% 50 ML VIAL ONE (20:04)
[2017-03-09] MEDS ORDERED: ACETAMINOPHEN 1000 MG/100 ML VIAL ONE (20:30)
[2017-03-09] MEDS ORDERED: ZOLPIDEM TARTRATE 5 MG TAB PO PRN (20:45)
[2017-03-09] MEDS ORDERED: SUGAMMADEX SODIUM 200 MG/2 ML VIAL IV PUSH ONE ×2 (20:47)
[2017-03-09] MEDS ORDERED: ENOXAPARIN SODIUM 40 MG/0.4 ML SYRINGE SQ SCH (21:00)
--- NOTE | 2017-03-09 22:39 | HHI.PR ---
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
[2017-03-09] MEDS ORDERED: PIPERACIL-TAZO 3.375 GM PREMIX 50 ML IV SCH (23:00)
[2017-03-09] MEDS ORDERED: DO NOT ADM ANY ANTICOAGULANT DRUGS PRN (23:15)
[2017-03-09] MEDS: SODIUM CHLOR 0.9% 1000 ML INJ 1,000 ML IV SCH (23:30)
[2017-03-09] MEDS: SODIUM CHLORIDE 0.9% FLUSH 10 ML FLUSH IV FLUSH SCH (23:30)
[2017-03-10] VITALS (8 sets, daily range): BP systolic 100–147; BP diastolic 57–67; PULSE 82–88; RESP 16–20; TEMP 96.7–98.9; O2SAT 95–100
[2017-03-10] MEDS: PIPERACIL-TAZO 3.375 GM PREMIX 50 ML IV SCH ×4 (01:00→17:34)
[2017-03-10] MEDS: SODIUM CHLOR 0.9% 1000 ML INJ 1,000 ML IV SCH ×2 (06:00→22:00)
[2017-03-10 06:14] LABS: BASOPHIL % 0.1 % (0.0-2.0); HEMATOCRIT 33.9 % (35.0-46.0); HEMO FLAGS DIFF FINAL; LYMPH % 2.5 % (9.0-44.0); LYMPHOCYTE # 0.4 TH/MM3 (1.0-4.8); MEAN CELL VOLUME 93.6 FL (80.0-100.0); MEAN CORPUSCULAR HEMOGLOBIN 31.6 PG (27.0-34.0); MEAN CORPUSCULAR HGB CONC 33.8 % (32.0-36.0); MONO % 2.9 % (0.0-8.0); NEUT % 94.5 % (16.0-70.0); PLATELET COUNT 198 TH/MM3 (150-450); RED BLOOD COUNT 3.62 MIL/MM3 (4.00-5.30); RED CELL DISTRIBUTION WIDTH 14.1 % (11.6-17.2); WHITE BLOOD COUNT 15.9 TH/MM3 (4.0-11.0)
[2017-03-10 06:48] LABS: BICARBONATE 23.8 MEQ/L (21.0-32.0); POTASSIUM 4.1 MEQ/L (3.5-5.1)
--- NOTE | 2017-03-10 07:36 | MB ---
cc: SRIDEVI DOOLEY MD DATE OF CONSULTATION 03/09/2017 CHIEF COMPLAINT Abdominal pain, rule out appendicitis. HISTORY OF PRESENT ILLNESS The patient is a 34-year-old female who presents with a complex medical-surgical history. She states she has had three days of left lower quadrant radiating to right lower quadrant abdominal pain. She states the pain was initially an 8/10. It is approximately a 5/10 with some IV pain medication and some relief. She says it is worse with movement. She states this has been the worst pain she has ever had in her life. She does note a fever of 101 at home and is afebrile here. She states again the pain is significantly sharp. She denies any significant change in bowel habits and came to the emergency department for further evaluation including a CT scan with concern for acute appendicitis with appendicolith. PAST MEDICAL HISTORY 1. Hypertension 2. Insomnia 3. Osteoporosis 4. Fistula 5. Acute cholecystitis 6. Fibroids PAST SURGICAL HISTORY 1. Hysterectomy 2. Fistula with bowel resection 3. Cholecystectomy 4. Hysterectomy 5. Colon surgery PAST MEDICATIONS See EMR. ALLERGIES The patient has no known drug allergies. SOCIAL HISTORY Occasional ETOH, history of smoking, but has quit. Denies IVDA. FAMILY HISTORY Mother with hypertension and heart problems. Brother with glaucoma. REVIEW OF SYSTEMS GENERAL: Complained of fever. HEENT: Denies eye pain, ear pain. NECK: Denies swelling or pain. LUNGS: Denies cough or wheeze. HEART: Denies on palpitations or chest pain. ABDOMEN: Complains of nausea and abdominal pain. : Denies dysuria or hematuria. ENDOCRINE: Denies polyuria or polydipsia. MUSCULOSKELETAL: Denies numbness or tingling. INTEGUMENT: Denies masses or lesions. PHYSICAL EXAMINATION GENERAL: The patient is in no acute distress. VITAL SIGNS: Temperature 98.7, pulse 95, respiration 26, blood pressure 154/67, saturation 97%. HEENT: PERRLA, pupils equal round reactive. NECK: Supple. Trachea midline. HEART: Regular rate and rhythm. S1-S2. LUNGS: Bilateral expansion. Clear. ABDOMEN: Soft, positive tenderness to palpation lower pelvic area. No rebound. Well-healed multiple surgical scars. EXTREMITIES: Warm, no edema. NEUROLOGIC: AO x four. 5/5 motor all extremities. BACK: Normal curvature. No step-offs. LABORATORY AND DIAGNOSTIC DATA WBC 20.5, hemoglobin 14.5, hematocrit 42.9, platelets 233. Sodium 135, potassium 4.2, chloride 98, CO2 26, BUN 14, creatinine 0.94, platelets 886. CT reviewed by myself showing colon resection and also evidence of acute appendicitis and noted. Pelvis, evidence of previous bowel surgery. No evidence of free intraperitoneal air and no fluid. ASSESSMENT Patient with acute abdominal pain consistent with acute appendicitis and appendicolith. PLAN After full clinical, radiologic and laboratory evaluation, the patient noted to have acute appendicitis with appendicolith. Does not appear ruptured at this time, however, the patient is over three days with abdominal pain with a severe leukocytosis including 20,000. Discussed with the patient also identification of the appendix noted to be lower mid pelvis due to multiple previous surgeries. I discussed my concern with the patient regarding potential multiple adhesions and potential difficulty with this case. However, the patient does have acute appendicitis and will go to the operating room for intervention. We will plan for laparoscopic appendectomy, diagnostic laparoscopy, possible lysis of adhesions, possible open. The patient understands, agrees and would like to proceed with operative intervention. Make the patient n.p.o., IV fluids, pain control, IV antibiotics. Thank you for this consultation. MD MICA Phan/GARCIA /6:38 AM /7:21 AM
--- NOTE | 2017-03-10 08:48 | HHI.FPPN ---
Subjective Remarks Patient is postoperative day 1 from a laparoscopic appendectomy, performed by Dr. Gutiérrez. Surgical findings included abdominal adhesions, and a perforated appendix with abscess. She currently has a NINA drain in place. The patient is currently in 5 out of 10 pain, and her pain on admission was a 10 out of 10. She has not been out of bed. No N/V/D. She denies any fevers, chills, shortness of breath, or chest pain. She is able to walk up a flight of steps normally without becoming short of breath. (Jeremias Spear MD, R3) Objective Vitals Vital Signs Date Time Temp Pulse Resp B/P (MAP) Pulse Ox O2 Delivery O2 Flow Rate FiO2 03/10/17 04:10 98.0 88 16 100/58 (72) 98 03/10/17 00:00 97.4 86 18 124/57 (79) 95 03/09/17 23:54 87 16 139/65 (89) 100 Nasal Cannula 2 03/09/17 23:28 91 16 132/62 (85) 100 Nasal Cannula 2 03/09/17 23:15 97 16 132/60 (84) 100 Nasal Cannula 2 03/09/17 23:00 106 14 131/63 (85) 100 Nasal Cannula 2 03/09/17 22:52 98.3 109 16 134/61 (85) 100 Nasal Cannula 2 03/09/17 20:37 03/09/17 18:00 95 26 154/67 (96) 97 Room Air 03/09/17 12:42 98.7 109 20 143/67 (92) 97 Room Air I/O 03/09/17 03/09/17 03/09/17 03/10/17 03/10/17 03/10/17 06:59 14:59 22:59 06:59 14:59 22:59 Intake Total 1600 ml Output Total 40 ml 280 ml 590 ml Balance 1560 ml -280 ml -590 ml Other 1600 ml Output Urine Total 250 ml 500 ml Drainage Total 30 ml 90 ml Estimated Blood Loss 40 ml (Jeremias Spear MD, R3) Result Diagram: 03/10/1752003/10/17520 Objective Remarks GENERAL: Well-nourished, well-developed patient. No acute distress. SKIN: Warm and dry. No rash. EYES: No scleral icterus. No injection or drainage. PERRLA. EOMI. HENT: Normocephalic. Atraumatic. MMM. NECK: No visible JVD or lymphadenopathy. CARDIOVASCULAR: Warm and well perfused. RESPIRATORY: Normal respiratory effort. GASTROINTESTINAL: Abdomen nondistended. NINA drain in place at midline, 5-10 cc serosanguineous output. BS active. MUSCULOSKELETAL: Strength grossly WNL. BACK: Without obvious deformity. NEURO/PSYCH: Afocal. Awake, alert, and oriented x3. (Jeremias Spear MD, R3) A/P Assessment and Plan 76 yo female with h/o insomnia presenting with: (Jeremias Spear MD, R3) Attending Attestation vPatient seen and examined. Case reviewed and discussed with the Dr Josh Spear. Agree with plan of care as discussed with me and documented in the resident note. (Pramod Oseguera MD) Problem List: (1) Sepsis ICD Codes: A41.9 - Sepsis, unspecified organism Status: Acute Plan: Sepsis due to appendicitis WBC ~20 - downtrending. Lactic acid slightly elevated (2.1) - downtrending, WNL. POD # 1 lap appy. - Pain control: Tylenol for moderate pain, morphine 1 mg IV Q3H for pain 6-8, morphine 2 mg IV Q3H for pain 9-10 - Zofran 4 mg IV Q8H PRN N/V - Zosyn 3.375 gm IV Q6H (dosed renally for CrCL ~40) (2) Appendicitis, acute ICD Codes: K35.80 - Unspecified acute appendicitis Status: Acute Plan: See above plan (3) Insomnia ICD Codes: G47.00 - Insomnia Status: Chronic Plan: Continue home Ambien PRN (4) HTN (hypertension) ICD Codes: I10 - Essential (primary) hypertension Status: Chronic Plan: BP slightly elevated on presentation, likely due to pain. Resolved post operatively. Not prescribed anti-hypertensive medication due to normal BP readings at home, but carries diagnosis. - Monitor clinically Permanent Comment: 12/2013: Urine microalb/cr: 9.9 Last Edited By: Tarik Wilkinson on Dec 31, 2013 13:06 (5) FEN/PPX Plan: Fluids: As above Elecs: Monitor and replete as needed Nutrition: NPO until after surgery DVT: SCDs sdw Dr. Oseguera. (Jeremias Spear MD, R3) Problem Qualifiers (1) Sepsis: Qualified Codes: A41.9 - Sepsis, unspecified organism (2) Appendicitis, acute: Qualified Codes: K35.80 - Unspecified acute appendicitis (3) HTN (hypertension): Qualified Codes: I10 - Essential (primary) hypertension Jeremias Spear MD, R3 Mar 10, 2017 08:48 Pramod Oseguera MD Mar 10, 2017 19:29
[2017-03-10] MEDS ORDERED: NON-FORMULARY DRUG (Coenzyme Q10 (Ubidecarenone) (Coq10) 1 CAP) PO SCH (09:00)
[2017-03-10] MEDS: CHOLECALCIFEROL (VIT D3) 1000 UNIT TAB PO SCH (10:23)
--- NOTE | 2017-03-10 11:23 | HHI.PR ---
Subjective Subjective Notes Resting in bed at bedside Doing well; tolerating ice chips Objective Vitals/I&O Vital Signs Date Time Temp Pulse Resp B/P (MAP) Pulse Ox O2 Delivery O2 Flow Rate FiO2 03/10/17 10:24 97 03/10/17 08:00 98.5 84 20 129/59 (82) 03/09/17 23:54 Nasal Cannula 2 Labs Laboratory Tests Test 03/09/17 13:30 03/09/17 14:00 03/09/17 17:23 03/09/17 23:30 White Blood Count 20.5 Red Blood Count 4.58 Hemoglobin 14.5 Hematocrit 42.9 Mean Corpuscular Volume 93.7 Mean Corpuscular Hemoglobin 31.7 Mean Corpuscular Hemoglobin Concent 33.8 Red Cell Distribution Width 14.1 Platelet Count 233 Mean Platelet Volume 8.0 Neutrophils (%) (Auto) 90.8 Lymphocytes (%) (Auto) 6.0 Monocytes (%) (Auto) 3.1 Eosinophils (%) (Auto) 0.0 Basophils (%) (Auto) 0.1 Neutrophils # (Auto) 18.7 Lymphocytes # (Auto) 1.2 Monocytes # (Auto) 0.6 Eosinophils # (Auto) 0.0 Basophils # (Auto) 0.0 CBC Comment DIFF FINAL Differential Comment Prothrombin Time 10.3 Prothromb Time International Ratio 0.9 Activated Partial Thromboplast Time 31.4 Blood Urea Nitrogen 14 Creatinine 0.94 Random Glucose 86 Total Protein 8.9 Albumin 3.7 Calcium Level 9.9 Magnesium Level 2.6 Alkaline Phosphatase 126 Aspartate Amino Transf (AST/SGOT) 37 Alanine Aminotransferase (ALT/SGPT) 40 Total Bilirubin 1.1 Sodium Level 135 Potassium Level 4.2 Chloride Level 98 Carbon Dioxide Level 26.5 Anion Gap 11 Estimat Glomerular Filtration Rate 58 Lactic Acid Level 2.1 1.0 Total Creatine Kinase 79 Troponin I 0.06 0.04 Lipase 110 Urine Color YELLOW Urine Turbidity HAZY Urine pH 6.0 Urine Specific [place] 1.028 Urine Protein 100 Urine Glucose (UA) NEG Urine Ketones 40 Urine Occult Blood MOD Urine Nitrite NEG Urine Bilirubin NEG Urine Urobilinogen 2.0 Urine Leukocyte Esterase NEG Urine RBC 10 Urine WBC 8 Urine Squamous Epithelial Cells 2 Urine Amorphous Sediment RARE Urine Mucus FEW Microscopic Urinalysis Comment CULT NOT INDICATED Amylase Level 30 Test 03/10/17 05:21 White Blood Count 15.9 Red Blood Count 3.62 Hemoglobin 11.4 Hematocrit 33.9 Mean Corpuscular Volume 93.6 Mean Corpuscular Hemoglobin 31.6 Mean Corpuscular Hemoglobin Concent 33.8 Red Cell Distribution Width 14.1 Platelet Count 198 Mean Platelet Volume 8.6 Neutrophils (%) (Auto) 94.5 Lymphocytes (%) (Auto) 2.5 Monocytes (%) (Auto) 2.9 Eosinophils (%) (Auto) 0.0 Basophils (%) (Auto) 0.1 Neutrophils # (Auto) 15.0 Lymphocytes # (Auto) 0.4 Monocytes # (Auto) 0.5 Eosinophils # (Auto) 0.0 Basophils # (Auto) 0.0 CBC Comment DIFF FINAL Differential Comment Blood Urea Nitrogen 9 Creatinine 0.51 Random Glucose 107 Calcium Level 7.8 Sodium Level 139 Potassium Level 4.1 Chloride Level 107 Carbon Dioxide Level 23.8 Anion Gap 8 Estimat Glomerular Filtration Rate 117 Date/Time Source Procedure Growth Status 03/09/17 17:23 Blood Peripheral Aerobic Blood Culture - Preliminary NO GROWTH IN 1 DAY Resulted 03/09/17 17:23 Blood Peripheral Anaerobic Blood Culture - Preliminary NO GROWTH IN 1 DAY Resulted 03/09/17 21:32 Fluid Peritoneal Fluid Gram Stain - Final Resulted 03/09/17 21:32 Fluid Peritoneal Fluid Body Fluid Culture Pending Resulted Cardiovascular: Regular Lungs: Clear Abdomen: Other (mildly distended; tender to palpation; lap sites c/d/i ) Extremities: No edema A/P Assessment and Plan 76 year old female POD1 lap appy; extensive PATRICK -Ice chips -IS -DC Borjas -IVF -Pain control -OOB and mobilize Attending Statement patient seen at bedside no issues wbc trending down no fevers Attestation The exam, history, and the medical decision-making described in the above note were completed with the assistance of the mid-level provider. I reviewed and agree with the findings presented. I attest that I had a [id number] encounter with the patient on the same day, and personally performed and documented my assessment and findings in the medical record. Tiffany Rivera Mar 10, 2017 11:23 Reji Gutiérrez MD Mar 12, 2017 21:38
--- NOTE | 2017-03-10 11:38 | MP ---
cc: SRIDEVI GUTIÉRREZ MD DATE OF SURGERY 03/09/2017 PREOPERATIVE DIAGNOSIS Acute appendicitis. POSTOPERATIVE DIAGNOSES 1. Perforated appendicitis. 2. Multiple intraabdominal adhesions. 3. Small abscess. SURGEON Dr. 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 ANESTHESIA GETA. IV FLUIDS 1600 cc. ESTIMATED BLOOD LOSS 20 cc. PROCEDURE PERFORMED Diagnostic laparoscopy, laparoscopic appendectomy, laparoscopic lysis of adhesions 60 minutes, repair of enterotomy. FINDINGS Multiple intraoperative adhesions. Perforated appendicitis with abscess, deep central pelvic area. COMPLICATIONS None. SPECIMENS Abscess cavity and appendix sent. DRAINS A 10-Togolese NINA drain placed. INDICATIONS The patient is a 76-year-old female who presented with acute onset of left sided abdominal pain which went to the right side. Patient with multiple abdominal surgeries and exploratory laparotomies. Patient with a leukocytosis of 20,000. She had a CT scan with findings of appendicolith and a central pelvic retrocecal appendix. Decision was made for diagnostic laparoscopy, laparoscopic appendectomy. Discussed with the patient in detail. DETAILS OF PROCEDURE The patient was taken to the operating suite, placed in supine position. She was prepped and draped in the usual sterile fashion after induction of general endotracheal anesthesia. Brief time-out done stating correct patient, procedure and surgical site. We were all in agreement with this. Attention directed to the left upper quadrant where a small stab/charu incision was made with 11-blade after an injection of local anesthetic. Veress needle placed, intraabdominal placement confirmed with saline drop test. Abdomen insufflated to 50 mm pneumoperitoneum. A 5-mm trocar was placed along with Visiport and scope. On inspection there was no evidence of injury. There was noted to be significant intraabdominal adhesions across a transverse midline incision along with multiple abdominal and pelvic adhesions. A small window was viewed in order to put a left lower quadrant trocar, 12 mm. Endoscopic north were used to mobilize and take down some adhesions in order to facilitate other trocar placement. Suprapubic trocar was then placed, 5-mm under direct visualization. Continued lysis of adhesions in order to identify and mobilized the cecum and multiple inner loops were noted to be stuck down in the pelvis. After mobilization of the midline at the umbilicus a fourth port was placed 5-mm, infraumbilical port under direct visualization. The patient was placed in Trendelenburg air-planing to the left. Continued dissection noted identification of the cecum. There were several bowel loops that were thickened and significantly inflamed. Upon grasping the small little serosal tear noted. This was repaired with a 2-0 Endo-suture. Further dissection deep to the cavity noted purulence which was sent for cultures and suction irrigation used to thoroughly irrigate this area. The appendix was noted to be retrocecal after a some mobilization of the cecum and retraction of small loops were adherent. The appendix was mobilized using both blunt and some electrical Bovie cautery. There was gross perforation of the gangrenous, necrotic mid-appendix. Once this was mobilized down to the base of the appendix, the base was transected with a 35 MARY white load stapler. Hemostasis was obtained. Suction irrigation done until effluent was clear. A small piece of SNoW was placed for coagulation. The appendix was placed in the EndoCatch bag and removed from the left lower quadrant incision. A 10-Togolese NINA drain was placed in the pelvis and out the suprapubic port site, secured in place with a 3-0 nylon. The left lower quadrant incision was closed with 0 Vicryl [id number], 4-0 Monocryl was used for subcuticular skin incisions. Sterile dressing was then placed. The patient tolerated the procedure well. There was no intraoperative complications. All lap and instrument counts were correct at the end of the procedure. The patient was extubated and taken stable to the PACU. MD MICA Phan/BENEDICT /10:39 AM /11:18 AM
--- NOTE | 2017-03-10 13:42 | EKG ---
Date Performed: 03/09/2017 Time Performed: 13:17:35 PTAGE: 76 years EKG: SINUS TACHYCARDIA POSSIBLE LEFT ATRIAL ENLARGEMENT POSSIBLE LEFT VENTRICULAR HYPERTROPHY AB NORMAL ECG Compared to prior tracing no significant change PREVIOUS TRACING : 03/07/2015 16.09 DOCTOR: Steffany Cervantes Interpretating Date/Time 03/10/2017 13:39:01
[2017-03-10] MEDS: SODIUM CHLORIDE 0.9% FLUSH 10 ML FLUSH IV FLUSH SCH (21:00)
[2017-03-11] MEDS: PIPERACIL-TAZO 3.375 GM PREMIX 50 ML IV SCH ×4 (00:05→18:17)
[2017-03-11 04:00] VITALS: BP 142/66; PULSE 91; RESP 18; TEMP 98.3; O2SAT 97
[2017-03-11] MEDS: SODIUM CHLOR 0.9% 1000 ML INJ 1,000 ML IV SCH ×2 (06:24→20:35)
[2017-03-11 08:00] VITALS: BP 137/61; PULSE 88; RESP 19; TEMP 98.5; O2SAT 98
[2017-03-11] MEDS: SODIUM CHLORIDE 0.9% FLUSH 10 ML FLUSH IV FLUSH SCH ×2 (09:00→20:35)
--- NOTE | 2017-03-11 09:10 | HHI.FPPN ---
Subjective Remarks doing well. excited to start clear diet today abdominal pain tolerable passing gas no BM no N/V AFVSS (Jeremias Spear MD, R3) Objective Vitals Vital Signs Date Time Temp Pulse Resp B/P (MAP) Pulse Ox O2 Delivery O2 Flow Rate FiO2 03/11/17 04:00 98.3 91 18 142/66 (91) 97 03/10/17 22:00 96.8 82 18 126/65 (85) 100 03/10/17 20:00 96.7 85 18 133/60 (84) 100 03/10/17 16:00 98.9 83 20 147/67 (93) 99 03/10/17 12:00 98.9 83 20 129/61 (83) 98 03/10/17 10:24 97 I/O 03/10/17 03/10/17 03/10/17 03/11/17 03/11/17 03/11/17 07:00 15:00 23:00 07:00 15:00 23:00 Intake Total 0 ml Output Total 280 ml 990 ml 15 ml 30 ml Balance -280 ml -990 ml -15 ml -30 ml Intake Oral 0 ml Output Urine Total 250 ml 900 ml Drainage Total 30 ml 90 ml 15 ml 30 ml (Jeremias Spear MD, R3) Result Diagram: 03/10/1752003/10/17 0521 Objective Remarks GENERAL: Well-nourished, well-developed patient. No acute distress. SKIN: Warm and dry. No rash. EYES: No scleral icterus. No injection or drainage. PERRLA. EOMI. HENT: Normocephalic. Atraumatic. MMM. NECK: No visible JVD or lymphadenopathy. CARDIOVASCULAR: Warm and well perfused. RESPIRATORY: Normal respiratory effort. GASTROINTESTINAL: Abdomen nondistended. NINA drain in place at midline, 5-10 cc serosanguineous output. BS active. MUSCULOSKELETAL: Strength grossly WNL. BACK: Without obvious deformity. NEURO/PSYCH: Afocal. Awake, alert, and oriented x3. (Jeremias Spear MD, R3) A/P Assessment and Plan 76 yo female with h/o insomnia presenting with: (Jeremias Spear MD, R3) Attending Attestation Patient was interviewed and examined with Dr Josh Spear present, EMR reviewed, case discussed in detail, agree with Assessment and Plan, See Orders, agree with contents of this note (Pramod Oseguera MD) Problem List: (1) Sepsis ICD Codes: A41.9 - Sepsis, unspecified organism Status: Acute Plan: Resolved WBC ~20 - downtrending. Lactic acid slightly elevated (2.1) - downtrending, WNL. POD # 2 lap appy. - Pain control: Tylenol for moderate pain, morphine 1 mg IV Q3H for pain 6-8, morphine 2 mg IV Q3H for pain 9-10 - Zofran 4 mg IV Q8H PRN N/V - Zosyn 3.375 gm IV Q6H (dosed renally for CrCL ~40) -Advance diet as directed by surgery (2) Appendicitis, acute ICD Codes: K35.80 - Unspecified acute appendicitis Status: Acute Plan: See above plan (3) Insomnia ICD Codes: G47.00 - Insomnia Status: Chronic Plan: Continue home Ambien PRN (4) HTN (hypertension) ICD Codes: I10 - Essential (primary) hypertension Status: Chronic Plan: BP slightly elevated on presentation, likely due to pain. Resolved post operatively. Not prescribed anti-hypertensive medication due to normal BP readings at home, but carries diagnosis. - Monitor clinically Permanent Comment: 12/2013: Urine microalb/cr: 9.9 Last Edited By: Tarik Wilkinson on Dec 31, 2013 13:06 (5) FEN/PPX Plan: Fluids: As above Elecs: Monitor and replete as needed Nutrition: clear liquid diet today DVT: SCDs sdw Dr. Oseguera. (Jeremias Spear MD, R3) Problem Qualifiers (1) Sepsis: Qualified Codes: A41.9 - Sepsis, unspecified organism (2) Appendicitis, acute: Qualified Codes: K35.80 - Unspecified acute appendicitis (3) HTN (hypertension): Qualified Codes: I10 - Essential (primary) hypertension Jeremias Spear MD, R3 Mar 11, 2017 09:10 Pramod Oseguera MD Mar 11, 2017 18:11
[2017-03-11 09:34] VITALS: O2SAT 98
[2017-03-11] MEDS: CHOLECALCIFEROL (VIT D3) 1000 UNIT TAB PO SCH (10:02)
[2017-03-11 10:33] LABS: AUTOMATED NEUTROPHIL # 8.1 TH/MM3 (1.8-7.7); BASOPHIL % 0.2 % (0.0-2.0); EOSINOPHIL % 0.3 % (0.0-4.0); HEMATOCRIT 34.6 % (35.0-46.0); HEMO FLAGS DIFF FINAL; LYMPH % 9.6 % (9.0-44.0); LYMPHOCYTE # 0.9 TH/MM3 (1.0-4.8); MEAN CELL VOLUME 95.9 FL (80.0-100.0); MEAN CORPUSCULAR HGB CONC 33.4 % (32.0-36.0); MONO % 7.4 % (0.0-8.0); NEUT % 82.5 % (16.0-70.0); PLATELET COUNT 224 TH/MM3 (150-450); RED BLOOD COUNT 3.61 MIL/MM3 (4.00-5.30); RED CELL DISTRIBUTION WIDTH 14.3 % (11.6-17.2); WHITE BLOOD COUNT 9.8 TH/MM3 (4.0-11.0)
--- NOTE | 2017-03-11 11:35 | HHI.PR ---
Subjective Subjective Notes Resting in bed Did not get much sleep last night Passing gas Objective Vitals/I&O Vital Signs Date Time Temp Pulse Resp B/P (MAP) Pulse Ox O2 Delivery O2 Flow Rate FiO2 03/11/17 09:34 98 21 03/11/17 08:00 98.5 88 19 137/61 (86) 03/09/17 23:54 Nasal Cannula 2 Labs Laboratory Tests Test 03/11/17 09:10 White Blood Count 9.8 Red Blood Count 3.61 Hemoglobin 11.5 Hematocrit 34.6 Mean Corpuscular Volume 95.9 Mean Corpuscular Hemoglobin 32.0 Mean Corpuscular Hemoglobin Concent 33.4 Red Cell Distribution Width 14.3 Platelet Count 224 Mean Platelet Volume 8.1 Neutrophils (%) (Auto) 82.5 Lymphocytes (%) (Auto) 9.6 Monocytes (%) (Auto) 7.4 Eosinophils (%) (Auto) 0.3 Basophils (%) (Auto) 0.2 Neutrophils # (Auto) 8.1 Lymphocytes # (Auto) 0.9 Monocytes # (Auto) 0.7 Eosinophils # (Auto) 0.0 Basophils # (Auto) 0.0 CBC Comment DIFF FINAL Differential Comment Date/Time Source Procedure Growth Status 03/09/17 17:23 Blood Peripheral Aerobic Blood Culture - Preliminary NO GROWTH IN 2 DAYS Resulted 03/09/17 17:23 Blood Peripheral Anaerobic Blood Culture - Preliminary NO GROWTH IN 2 DAYS Resulted 03/09/17 21:32 Fluid Peritoneal Fluid Gram Stain - Final Resulted 03/09/17 21:32 Body Fluid Culture - Preliminary Gram Negative Ubaldo Resulted Cardiovascular: Regular Lungs: Clear Abdomen: Other (soft; minimally tender; NINA with SS drainge; lap sites c/d/i with minimal bloody drainage on steri strips ) Extremities: No edema A/P Assessment and Plan 76 year old female POD2 lap appy; extensive PATRICK -Clear liquids -IS -IVF -Pain control -OOB and mobilize Attending Statement patient seen at bedside doing well clears pain slowly improving Attestation The exam, history, and the medical decision-making described in the above note were completed with the assistance of the mid-level provider. I reviewed and agree with the findings presented. I attest that I had a [id number] encounter with the patient on the same day, and personally performed and documented my assessment and findings in the medical record. Tiffany Rivera Mar 11, 2017 11:35 Reji Gutiérrez MD Mar 12, 2017 22:01
[2017-03-11 12:36] VITALS: BP 137/62; PULSE 93; RESP 18; TEMP 98.1; O2SAT 100
[2017-03-11 16:09] VITALS: BP 140/63; PULSE 87; RESP 18; TEMP 98.1; O2SAT 100
[2017-03-12] VITALS: BP 144/70; PULSE 90; RESP 20; TEMP 98.4; O2SAT 97
[2017-03-12] MEDS: PIPERACIL-TAZO 3.375 GM PREMIX 50 ML IV SCH ×2 (00:55→06:09)
[2017-03-12 04:00] VITALS: BP 158/72; PULSE 92; RESP 20; TEMP 98; O2SAT 97
[2017-03-12 08:00] VITALS: BP 157/72; PULSE 82; RESP 16; TEMP 98.2; O2SAT 97
[2017-03-12] MEDS: CHOLECALCIFEROL (VIT D3) 1000 UNIT TAB PO SCH (08:25)
[2017-03-12] MEDS: SODIUM CHLORIDE 0.9% FLUSH 10 ML FLUSH IV FLUSH SCH ×2 (08:25→22:13)
--- NOTE | 2017-03-12 09:25 | HHI.FPPN ---
Subjective Remarks Patient feeling well. Tolerated Jello yesterday but apple-juice is making her stomach upset. Denies Nausea or vomiting. Still passing flatus. No BM. OOB with walker and sat in chair for 7 hours yesterday. Excited to start regular diet today. Denies fevers or chills. (Jeremias Spear MD, R3) Objective Vitals Vital Signs Date Time Temp Pulse Resp B/P (MAP) Pulse Ox O2 Delivery O2 Flow Rate FiO2 03/12/17 08:00 98.2 82 16 157/72 (100) 97 03/12/17 04:00 98.0 92 20 158/72 (100) 97 03/12/17 00:00 98.4 90 20 144/70 (94) 97 03/11/17 16:09 98.1 87 18 140/63 (88) 100 03/11/17 12:36 98.1 93 18 137/62 (87) 100 03/11/17 09:34 98 21 I/O 03/11/17 03/11/17 03/11/17 03/12/17 03/12/17 03/12/17 06:59 14:59 22:59 06:59 14:59 22:59 Intake Total 360 ml 220 ml Output Total 30 ml 300 ml Balance -30 ml 360 ml -80 ml Intake Oral 360 ml 220 ml Output Urine Total 300 ml Drainage Total 30 ml # Voids 3 # Bowel Movements 0 (Jeremias Spear MD, R3) Result Diagram: 03/11/17 0910 03/10/17 0521 Objective Remarks GENERAL: Well-nourished, well-developed patient. No acute distress. SKIN: Warm and dry. No rash. EYES: No scleral icterus. No injection or drainage. PERRLA. EOMI. HENT: Normocephalic. Atraumatic. MMM. NECK: No visible JVD or lymphadenopathy. CARDIOVASCULAR: Warm and well perfused. RESPIRATORY: Normal respiratory effort. GASTROINTESTINAL: Abdomen nondistended. NINA drain in place at midline. BS active. MUSCULOSKELETAL: Strength grossly WNL. BACK: Without obvious deformity. NEURO/PSYCH: Afocal. Awake, alert, and oriented x3. (Jeremias Spear MD, R3) A/P Assessment and Plan 76 yo female with h/o insomnia presenting with: (Jeremias Spear MD, R3) Attending Attestation Medical rounds performed this am, Patient examined and interviewed with Dr Jeremias Spear, Agree with contents of this note, Detailed discussion involving the management held with resident, Agree to Assessment and Plan, See Orders. (Pramod Oseguera MD) Problem List: (1) Sepsis ICD Codes: A41.9 - Sepsis, unspecified organism Status: Acute Plan: Resolved WBC <12,000 on 03/11/17. Lactic acid slightly elevated (2.1) - downtrending, WNL. POD # 3 lap appy. - Pain control: Tylenol for moderate pain, morphine 1 mg IV Q3H for pain 6-8, morphine 2 mg IV Q3H for pain 9-10 - Zofran 4 mg IV Q8H PRN N/V - Zosyn 3.375 gm IV Q6H (dosed renally for CrCL ~40) -Advance diet as directed by surgery (2) Appendicitis, acute ICD Codes: K35.80 - Unspecified acute appendicitis Status: Acute Plan: See above plan (3) Insomnia ICD Codes: G47.00 - Insomnia Status: Chronic Plan: Continue home Ambien PRN (4) HTN (hypertension) ICD Codes: I10 - Essential (primary) hypertension Status: Chronic Plan: BP slightly elevated on presentation, likely due to pain. Resolved post operatively. Not prescribed anti-hypertensive medication due to normal BP readings at home, but carries diagnosis. - Monitor clinically Permanent Comment: 12/2013: Urine microalb/cr: 9.9 Last Edited By: Tarik Wilkinson on Dec 31, 2013 13:06 (5) FEN/PPX Plan: Fluids: As above Elecs: Monitor and replete as needed Nutrition: reg diet today DVT: SCDs sdw Dr. Oseguera. (Jeremias Spear MD, R3) Problem Qualifiers (1) Sepsis: Qualified Codes: A41.9 - Sepsis, unspecified organism (2) Appendicitis, acute: Qualified Codes: K35.80 - Unspecified acute appendicitis (3) HTN (hypertension): Qualified Codes: I10 - Essential (primary) hypertension Jeremias Spear MD, R3 Mar 12, 2017 09:25 Pramod Oseguera MD Mar 12, 2017 19:04
[2017-03-12] MEDS ORDERED: AUGM875T3 PO (10:47)
[2017-03-12] MEDS: DOCUSATE SODIUM 50 MG/SENNA 8.6 MG TAB PO SCH ×2 (11:00→22:12)
[2017-03-12] MEDS ORDERED: ACETAMINOPHEN/HYDROcodone 325 MG/5 MG TAB PO PRN (11:00)
[2017-03-12 12:00] VITALS: BP 166/72; PULSE 91; RESP 16; TEMP 98.1; O2SAT 97
--- NOTE | 2017-03-12 12:28 | HHI.PR ---
Subjective Subjective Notes Up to chair No issues Feels hungry Objective Vitals/I&O Vital Signs Date Time Temp Pulse Resp B/P (MAP) Pulse Ox O2 Delivery O2 Flow Rate FiO2 03/12/17 08:00 98.2 82 16 157/72 (100) 97 03/11/17 09:34 21 03/09/17 23:54 Nasal Cannula 2 Labs Date/Time Source Procedure Growth Status 03/09/17 17:23 Blood Peripheral Aerobic Blood Culture - Preliminary NO GROWTH IN 3 DAYS Resulted 03/09/17 17:23 Blood Peripheral Anaerobic Blood Culture - Preliminary NO GROWTH IN 3 DAYS Resulted 03/09/17 21:32 Fluid Peritoneal Fluid Gram Stain - Final Complete 03/09/17 21:32 Body Fluid Culture - Final Escherichia Coli Citrobacter Species Complete Cardiovascular: Regular Lungs: Clear Abdomen: Other (abdomen mildly distended; NINA with serous fluid; lap sites c/d/ i ) Extremities: No edema A/P Assessment and Plan 76 year old female POD3 lap appy; extensive PATRICK -Advance to fulls; if tolerates okay for regular dinner -IS -DC IVF -Pain control -OOB and mobilize -Transition to Augmentin -RX for pain and antibiotics on chart Attending Statement Patient seen and examined at bedside full diet po abx doing well Attestation The exam, history, and the medical decision-making described in the above note were completed with the assistance of the mid-level provider. I reviewed and agree with the findings presented. I attest that I had a [id number] encounter with the patient on the same day, and personally performed and documented my assessment and findings in the medical record. Tiffany Rivera Mar 12, 2017 12:28 Reji Gutiérrez MD Mar 22, 2017 22:47
[2017-03-12 16:00] VITALS: BP 185/77; PULSE 88; RESP 20; TEMP 98.2; O2SAT 99
[2017-03-12 20:00] VITALS: BP 149/68; PULSE 90; RESP 18; TEMP 98; O2SAT 98
[2017-03-12] MEDS ORDERED: cloNIDine HCL 0.1 MG TAB PO ONE (21:45)
[2017-03-12] MEDS ORDERED: cloNIDine HCL 0.1 MG TAB PO PRN (21:45)
[2017-03-12] MEDS: AMOXICILLIN/CLAVULANATE K 875 MG TAB PO SCH (22:12)
[2017-03-13] VITALS: BP 160/70; PULSE 91; RESP 18; TEMP 98.4; O2SAT 98
[2017-03-13 04:00] VITALS: BP 165/72; PULSE 82; RESP 20; TEMP 98.9; O2SAT 98
--- NOTE | 2017-03-13 08:25 | HHI.PR ---
Subjective Subjective Notes Resting in bed No issues overnight Objective Vitals/I&O Vital Signs Date Time Temp Pulse Resp B/P (MAP) Pulse Ox O2 Delivery O2 Flow Rate FiO2 03/13/17 04:00 98.9 82 20 165/72 (103) 98 03/11/17 09:34 21 03/09/17 23:54 Nasal Cannula 2 Labs Date/Time Source Procedure Growth Status 03/09/17 17:23 Blood Peripheral Aerobic Blood Culture - Preliminary NO GROWTH IN 3 DAYS Resulted 03/09/17 17:23 Blood Peripheral Anaerobic Blood Culture - Preliminary NO GROWTH IN 3 DAYS Resulted 03/09/17 21:32 Fluid Peritoneal Fluid Gram Stain - Final Complete 03/09/17 21:32 Body Fluid Culture - Final Escherichia Coli Citrobacter Species Complete Cardiovascular: Regular Lungs: Clear Abdomen: Non-distended, Other (minimally tender to palpation; NINA removed; lap sites c/d/i ) Extremities: Other (moderate BLE edema ) A/P Assessment and Plan 76 year old female POD4 lap appy; extensive PATRICK -Regular diet -IS -DC NINA drain -Pain control -OOB and mobilize -Tolerated Augmentin -RX for pain and antibiotics on chart -Follow up Dr. Gutiérrez next Thursday - clear for DC Attending Statement Patient seen and examined at bedside regular diet d/c plan from surgery stand point Attestation The exam, history, and the medical decision-making described in the above note were completed with the assistance of the mid-level provider. I reviewed and agree with the findings presented. I attest that I had a [id number] encounter with the patient on the same day, and personally performed and documented my assessment and findings in the medical record. Tiffany Rivera Mar 13, 2017 08:25 Reji Gutiérrez MD Mar 22, 2017 22:49
[2017-03-13 08:41] VITALS: BP 159/69; PULSE 83; RESP 18; TEMP 98.4; O2SAT 98
[2017-03-13] MEDS: DOCUSATE SODIUM 50 MG/SENNA 8.6 MG TAB PO SCH (09:00)
--- NOTE | 2017-03-13 09:33 | HHI.FPPN ---
Subjective Remarks Patient without concerns. Drain removed today. Asking when she can go home. Denies fevers, worsening abdominal pain, or vomiting. Had 3 bowel movements yesterday that were soft. (Jeremias Spear MD, R3) Objective Vitals Vital Signs Date Time Temp Pulse Resp B/P (MAP) Pulse Ox O2 Delivery O2 Flow Rate FiO2 03/13/17 08:41 98.4 83 18 159/69 (99) 98 03/13/17 04:00 98.9 82 20 165/72 (103) 98 03/13/17 00:00 98.4 91 18 160/70 (100) 98 03/12/17 20:00 98.0 90 18 149/68 (95) 98 03/12/17 16:00 98.2 88 20 185/77 (113) 99 03/12/17 12:00 98.1 91 16 166/72 (103) 97 I/O 03/12/17 03/12/17 03/12/17 03/13/17 03/13/17 03/13/17 07:00 15:00 23:00 07:00 15:00 23:00 Intake Total 220 ml 600 ml Output Total 300 ml 30 ml Balance -80 ml 600 ml -30 ml Intake Oral 220 ml 600 ml Output Urine Total 300 ml Drainage Total 30 ml # Voids 3 5 1 2 # Bowel Movements 0 1 (Jeremias Spear MD, R3) Result Diagram: 03/11/17 0910 03/10/17 0521 Objective Remarks GENERAL: Well-nourished, well-developed patient. No acute distress. SKIN: Warm and dry. No rash. EYES: No scleral icterus. No injection or drainage. PERRLA. EOMI. HENT: Normocephalic. Atraumatic. MMM. NECK: No visible JVD or lymphadenopathy. CARDIOVASCULAR: Warm and well perfused. RESPIRATORY: Normal respiratory effort. GASTROINTESTINAL: Abdomen nondistended. NINA drain in place at midline. BS active. MUSCULOSKELETAL: Strength grossly WNL. BACK: Without obvious deformity. NEURO/PSYCH: Afocal. Awake, alert, and oriented x3. (Jeremias Spear MD, R3) A/P Assessment and Plan 76 yo female with h/o insomnia presenting with: (Jeremias Spear MD, R3) Attending Attestation Patient seen and examined. Case reviewed and discussed with the Dr Spear. Agree with plan of care as discussed with me and documented in the resident note (Pramod Oseguera MD) Problem List: (1) Sepsis ICD Codes: A41.9 - Sepsis, unspecified organism Status: Acute Plan: Resolved WBC <12,000 on 03/11/17. Lactic acid slightly elevated (2.1) - downtrending, WNL. POD # 4 lap appy. -Tolerating whole meals, having BMS. Cleared for D/C by surgery. We appreciate their management and care of Mrs. Goyal. - Zofran 4 mg IV Q8H PRN N/V - Zosyn 3.375 gm IV Q6H (dosed renally for CrCL ~40) Transition to augmentin x 7 days given susceptibilities of E coli and citrobacter species in abdominal abscess cultures. (2) Appendicitis, acute ICD Codes: K35.80 - Unspecified acute appendicitis Status: Acute Plan: See above plan (3) Insomnia ICD Codes: G47.00 - Insomnia Status: Chronic Plan: Continue home Ambien PRN (4) HTN (hypertension) ICD Codes: I10 - Essential (primary) hypertension Status: Chronic Plan: BP slightly elevated on presentation, likely due to pain. Resolved post operatively. Not prescribed anti-hypertensive medication due to normal BP readings at home, but carries diagnosis. - Monitor clinically Permanent Comment: 12/2013: Urine microalb/cr: 9.9 Last Edited By: Tarik Wilkinson on Dec 31, 2013 13:06 (5) FEN/PPX Plan: Fluids: As above Elecs: Monitor and replete as needed Nutrition: reg diet today DVT: SCDs sdw Dr. Oseguera. (Jeremias Spear MD, R3) Problem Qualifiers (1) Sepsis: Qualified Codes: A41.9 - Sepsis, unspecified organism (2) Appendicitis, acute: Qualified Codes: K35.80 - Unspecified acute appendicitis (3) HTN (hypertension): Qualified Codes: I10 - Essential (primary) hypertension Jeremias Spear MD, R3 Mar 13, 2017 09:33 Pramod Oseguera MD Mar 13, 2017 15:27
--- NOTE | 2017-03-13 09:38 | HHI.DS ---
Discharge Summary Admission Date Mar 09, 2017 at 19:33 Admitting Diagnosis APPENDICITIS (1) Sepsis Plan: Resolved WBC <12,000 on 03/11/17. Lactic acid slightly elevated (2.1) - downtrending, WNL. POD # 4 lap appy. -Tolerating whole meals, having BMS. Cleared for D/C by surgery. We appreciate their management and care of Mrs. Goyal. - Zofran 4 mg IV Q8H PRN N/V - Zosyn 3.375 gm IV Q6H (dosed renally for CrCL ~40) Transition to augmentin x 7 days given susceptibilities of E coli and citrobacter species in abdominal abscess cultures. ICD Codes: A41.9 - Sepsis, unspecified organism Status: Acute (2) Appendicitis, acute Plan: See above plan ICD Codes: K35.80 - Unspecified acute appendicitis Status: Acute (3) Insomnia Plan: Continue home Ambien PRN ICD Codes: G47.00 - Insomnia Status: Chronic (4) HTN (hypertension) Plan: BP slightly elevated on presentation, likely due to pain. Resolved post operatively. Not prescribed anti-hypertensive medication due to normal BP readings at home, but carries diagnosis. - Monitor clinically ICD Codes: I10 - Essential (primary) hypertension Status: Chronic (5) FEN/PPX Plan: Fluids: As above Elecs: Monitor and replete as needed Nutrition: reg diet today DVT: SCDs sdw Dr. Oseguera. Brief History 34-year-old female with past medical history of chronic insomnia presenting with a four-day history of lower abdominal pain. Started on Thursday, at which time she thought it was just some gas. Took some Gas-X Thursday night and Thursday morning which did not improve her symptoms. Pain is described as lower abdominal cramping. It does not radiate. On Thursday evening, she had a temperature of 101. She took some Tylenol Thursday during the day which made her sleep but otherwise did not improve her symptoms. She's felt slightly nauseous but has not vomited. She had some diarrhea this morning described as loose brown watery stool. Denies recent antibiotic use or foul-smelling stool. Denies blood in stool, constipation, dysuria, chest pain, shortness of breath. CBC/BMP: 03/11/17 0910 03/10/17 0521 Significant Findings Laboratory Tests Test 03/11/17 09:10 Red Blood Count 3.61 MIL/MM3 (4.00-5.30) Hemoglobin 11.5 GM/DL (11.6-15.3) Hematocrit 34.6 % (35.0-46.0) Neutrophils (%) (Auto) 82.5 % (16.0-70.0) Neutrophils # (Auto) 8.1 TH/MM3 (1.8-7.7) Lymphocytes # (Auto) 0.9 TH/MM3 (1.0-4.8) PE at Discharge GENERAL: Well-nourished, well-developed patient. No acute distress. SKIN: Warm and dry. No rash. EYES: No scleral icterus. No injection or drainage. PERRLA. EOMI. HENT: Normocephalic. Atraumatic. MMM. NECK: No visible JVD or lymphadenopathy. CARDIOVASCULAR: Warm and well perfused. RESPIRATORY: Normal respiratory effort. GASTROINTESTINAL: Abdomen nondistended. NINA drain in place at midline. BS active. MUSCULOSKELETAL: Strength grossly WNL. BACK: Without obvious deformity. NEURO/PSYCH: Afocal. Awake, alert, and oriented x3. Hospital Course Patient is a pleasant 76-year-old female, who presented to the emergency room with an acute abdomen, found to have inflammatory changes of her right lower quadrant with a dilated appendix, and found to have acute appendicitis. She was taken for laparoscopic appendectomy by Dr. Gutiérrez, and was found to have intraabdominal abscess that was ejaculate. Also noted to have significant adhesions that were lysed. She did well after the surgery, both on IV antibiotics (Zosyn), and was discharged home on amoxicillin-clavulanic acid 7 days. She was tolerating a diet, passing flatus, having normal bowel movements. Her leukocytosis resolved throughout the hospitalization. She is ambulating without difficulty. A NINA drain was removed on postoperative day 4, she was discharged on the same day. She'll follow-up with her PCP within one week. He was discharged home in stable condition. Pt Condition on Discharge: Good Discharge Instructions New Medications: Amoxicillin-Clavulanate (Augmentin) 875-125 Mg Tab 1 TAB PO BID for Infection for 7 Days, TAB 0 Refills Jeremias Spear MD, R3 Mar 13, 2017 09:38
[2017-03-13] MEDS: CHOLECALCIFEROL (VIT D3) 1000 UNIT TAB PO SCH (09:56)
[2017-03-13] MEDS: AMOXICILLIN/CLAVULANATE K 875 MG TAB PO SCH (09:56)
[2017-03-13] MEDS: SODIUM CHLORIDE 0.9% FLUSH 10 ML FLUSH IV FLUSH SCH (09:57)
[2017-03-13 11:56] VITALS: BP 139/63; PULSE 86; RESP 18; TEMP 98.2; O2SAT 100
== END 2017-03-13 12:43 | disposition home or self-care (01) | DRG 853 ==
LOC: NEPE 12:38 → NEDA 19:33 → N05B 20:44 → N05A 03-10 00:11
PROVIDERS: ADMIT Family Medicine; ATTEND Family Medicine
PROC: 0DQ84ZZ Repair Small Intestine, Percutaneous Endoscopic Approach (ICD-10-PCS; 2017-03-09)
PROC: 0DTJ4ZZ Resection of Appendix, Percutaneous Endoscopic Approach (ICD-10-PCS; principal; 2017-03-09 20:29)
PROC: 0WJP4ZZ Inspection of Gastrointestinal Tract, Percutaneous Endoscopic Approach (ICD-10-PCS; 2017-03-09 20:29)
DX: A41.9 Sepsis, unspecified organism (principal); K35.3 Acute appendicitis with localized peritonitis; K91.71 Accidental puncture and laceration of a digestive system organ or structure during a digestive system procedure; K66.0 Peritoneal adhesions (postprocedural) (postinfection); I10 Essential (primary) hypertension; K21.9 Gastro-esophageal reflux disease without esophagitis; K57.30 Diverticulosis of large intestine without perforation or abscess without bleeding; Z82.49 Family history of ischemic heart disease and other diseases of the circulatory system; G47.00 Insomnia, unspecified; M81.0 Age-related osteoporosis without current pathological fracture; Z90.710 Acquired absence of both cervix and uterus; Z87.891 Personal history of nicotine dependence; Y83.8 Other surgical procedures as the cause of abnormal reaction of the patient, or of later complication, without mention of misadventure at the time of the procedure; Y73.3 Surgical instruments, materials and gastroenterology and urology devices (including sutures) associated with adverse incidents; Y92.234 Operating room of hospital as the place of occurrence of the external cause; K38.1 Appendicular concretions
CPT/HCPCS: 71020; 74177; 80048; 80053; 81001; 82150; 82550; 83605; 83690; 83735; 84484; 85025; 85610; 85730; 87015; 87040; 87070; 87077; 87102; 87116; 87186; 87205; 87206; 88304; 93005; 94150; 96374; 96375; J0131; J2270; J2370; J2405; J2543; J3010; J7030; J7120; Q9967